=== PATIENT | male | born 1955 | race Caucasian/White ===

== ENCOUNTER 2022-10-19 17:56 | Inpatient (IN) | payer MEDICARE, BC ==
[~2022-10-19] VITALS: Ht 172.7 cm; Wt 100.7 kg
--- NOTE | 2022-10-19 18:03 | NUR ---
[email or web address], medical screening exam in progress
--- NOTE | 2022-10-19 18:14 | NUR ---
Patient is medically cleared by Dr Mckoy, pending accepting MHU nurse at this time.
[2022-10-19] MEDS ORDERED: QUET25TA PO (18:33)
[2022-10-19] MEDS ORDERED: RISP3TAB61 PO (18:33)
[2022-10-19] MEDS ORDERED: HYDR-3972 PO (18:33)
[2022-10-19] MEDS ORDERED: LAMO100T17 PO (18:33)
[2022-10-19] MEDS ORDERED: NAPR-1196 PO (18:33)
[2022-10-19] MEDS ORDERED: AMLO10TA59 PO (18:33)
[2022-10-19] MEDS ORDERED: NYST15OI2 TP (18:33)
[2022-10-19] MEDS ORDERED: GABA-532 PO (18:33)
[2022-10-19] MEDS ORDERED: CYAN500T9 PO (18:33)
[2022-10-19] MEDS ORDERED: DILT-4 PO (18:33)
[2022-10-19] MEDS ORDERED: APIX5TAB4 PO (18:33)
[2022-10-19] MEDS ORDERED: OXYC-117 PO (18:33)
[2022-10-19] MEDS ORDERED: LITH450T2 PO (18:33)
[2022-10-19] MEDS ORDERED: CHLO25CA22 PO (18:33)
[2022-10-19] MEDS ORDERED: FOLI1TAB27 PO (18:33)
--- NOTE | 2022-10-19 18:44 | NUR ---
Patient is eating hot dinner tray with good appetite, pending accepting MHU nurse at this time. Patient is calm and cooperative at this time.
--- NOTE | 2022-10-19 18:56 | NUR ---
Patient will be admitted to MHU room 137-A or 137-B , under care of Dr. Gee. Belongings List completed, pending accepting nurse at this time.
--- NOTE | 2022-10-19 19:30 | NUR ---
Pt is noted alert, responsive as report is received from the off going nurse that Pt was Transferred From [place] for admission to [facility] unit on hold 5150for Gravely Disabled and he is ETOH. He is medical Clear as he will be under DR. Desai and Dr. Williamson., going to Room 137 MHU. Pt care continue.
--- NOTE | 2022-10-19 19:34 | NUR ---
Patient is waiting for an accepting MHU nurse. Nursing hands off report given to registry nurse Rachael Motta
[2022-10-19] MEDS ORDERED: HALOPERIDOL LACTATE 5 MG/1 ML VIAL ONE (20:40)
--- NOTE | 2022-10-19 20:43 | NUR ---
Pt care continue as 10mg IM off Haldol given as he is passing and shouting out on Staffs. Pt care continue as awaits MHU RN to give report.
[2022-10-19] MEDS ORDERED: HALOPERIDOL LACTATE 5 MG/1 ML VIAL IM ONE (20:45)
--- NOTE | 2022-10-19 21:54 | NUR ---
Pt care continue as report is given to the MHU Nurse as Haldol 10mg IM noted effective.
[2022-10-19 22:15] VITALS: BP 138/83; TEMP 97.8; O2SAT 98
[2022-10-19] MEDS ORDERED: TEMAZEPAM 7.5 MG CAPSULE PO PRN (22:15)
[2022-10-19] MEDS ORDERED: LORAZEPAM 0.5 MG TABLET PO PRN (22:15)
[2022-10-19] MEDS ORDERED: MAGNESIUM HYDROXIDE 30 ML LIQUID UDC PO PRN (22:15)
[2022-10-19] MEDS ORDERED: MAG HYDROX/AL HYDROX/SIMETH 30 ML LIQUID UDC PO PRN (22:15)
--- NOTE | 2022-10-19 22:15 | NUR ---
ADMISSION NOTE; Patient is a 67 year old male, brought into the hospital by ambulance ,from [facility] . Patient is homeless and was placed on a 5150 for GD. Per the hold, pt was confuse, delusional and responding to interna stimuli and unable to care for him self. Upon face to face evaluation, the patient is guarded, labile and uncooperative. Pt is A/o X3 and has unsteady gait. Pt is able to voice his needs, skin is intact and no acute distress noted. This lyric writer oriented the patient to the environment, explained the plan of care at this time, provided a Patient Rights Handbook along with the Patient Advisement. Safety Strategies are in place. Continuing to monitor for safety, continue with treatment plan.
[2022-10-20] MEDS ORDERED: LORAZEPAM 1 MG TABLET PO PRN (05:45)
[2022-10-20 07:31] VITALS: BP 110/83; TEMP 98.1; O2SAT 98
[2022-10-20] MEDS: LITHIUM CARBONATE 150 MG CAPSULE PO SCH ×2 (12:14→16:22)
[2022-10-20] MEDS: risperiDONE 1 MG TABLET PO SCH ×2 (12:15→16:22)
[2022-10-20] MEDS: GABAPENTIN 100 MG CAPSULE PO SCH ×2 (13:00→17:00)
--- NOTE | 2022-10-20 14:18 | NUR ---
Received confuse, delusional and responding to interna stimuli , patient is guarded, labile and uncooperative. Pt is A/o X3 and has unsteady gait.isolative and withdraw no interaction with other peers.complant with medication ,will continue close monitoring.
[2022-10-20 16:13] VITALS: BP 137/65; TEMP 97.8; O2SAT 98
[2022-10-20] MEDS ORDERED: APIXABAN 5 MG PO SCH (17:00)
[2022-10-20] MEDS ORDERED: NAPROXEN 250 MG TABLET PO SCH (17:00)
[2022-10-20 19:44] VITALS: BP 122/74; TEMP 98.2; O2SAT 96
[2022-10-20] MEDS: APIXABAN 5 MG TABLET PO SCH (21:44)
--- NOTE | 2022-10-21 06:16 | NUR ---
Patient slept for approx 7hr through the night. he was noted calm and pleasant during the shift. will continue to monitor.
[2022-10-21 07:49] VITALS: BP 112/71; TEMP 98.1; O2SAT 98
[2022-10-21] MEDS: FOLIC ACID 1 MG TABLET PO SCH (08:21)
[2022-10-21] MEDS: risperiDONE 1 MG TABLET PO SCH ×3 (08:21→20:22)
[2022-10-21] MEDS: LITHIUM CARBONATE 150 MG CAPSULE PO SCH ×3 (08:21→16:25)
[2022-10-21] MEDS: CYANOCOBALAMIN 1,000 MCG TABLET PO SCH (08:21)
[2022-10-21] MEDS: AMLODIPINE 10 MG TABLET PO SCH (08:23)
[2022-10-21] MEDS: DILTIAZEM HCL CD 240 MG CAP.SR.24H PO SCH (08:23)
[2022-10-21] MEDS: GABAPENTIN 100 MG CAPSULE PO SCH ×3 (08:24→16:25)
[2022-10-21] MEDS: APIXABAN 5 MG TABLET PO SCH ×2 (08:37→20:23)
--- NOTE | 2022-10-21 14:04 | NUR ---
patient is more alert and oriented x2, delusional and responding to interna stimuli , patient is guarded. patient with unsteady gait.isolative and withdraw no interaction with other peers.complaint with medication ,will continue close monitoring.
--- NOTE | 2022-10-21 14:37 | NUR ---
DICK Initial Discharge Note: Pt's last residence was at [address] [address] living in his car. Pt stated he does not have his car anymore and he will need placement. Per pt, he does not speak to any family. Pt is currently homeless. Pt is accepting help with placement. DICK will continue to work with pt and MD to ensure a safe and proper discharge plan.
[2022-10-21 16:11] VITALS: BP 120/66; TEMP 98; O2SAT 98
[2022-10-21 19:50] VITALS: BP 125/82; TEMP 98.3; O2SAT 99
--- NOTE | 2022-10-21 21:13 | NUR ---
Received patient in the hallway. he is noted A/O x 2. he is able to ambulate with steady gait and able to do most of his ADLs with little assistance. He is noted calm and pleasant upon approached. Patient noted goal oriented. he denied SI/HI/AH/VH. he is able to verbalized his feelings. PO fluids and snacks were given. he is reassured for his safety. safety and fall precautions are in place. will continue to monitor.
--- NOTE | 2022-10-22 07:54 | NUR ---
GPS Nursing notes: Patient lying in bed in HOB, awake looking out the window, friendly on approach, clear speech, denies pain or discomforts, stated he slept well. No S/S of discomforts noted, denies SI/HI/VH/AH. Educated patient on morning reutine and breakfast schedule and medications.
[2022-10-22 07:59] VITALS: BP 100/70; TEMP 98; O2SAT 98
[2022-10-22] MEDS: CYANOCOBALAMIN 1,000 MCG TABLET PO SCH (08:12)
[2022-10-22] MEDS: GABAPENTIN 100 MG CAPSULE PO SCH ×3 (08:12→16:23)
[2022-10-22] MEDS: risperiDONE 1 MG TABLET PO SCH ×3 (08:13→20:23)
[2022-10-22] MEDS: LITHIUM CARBONATE 150 MG CAPSULE PO SCH ×3 (08:13→16:22)
[2022-10-22] MEDS: FOLIC ACID 1 MG TABLET PO SCH (08:13)
[2022-10-22] MEDS: APIXABAN 5 MG TABLET PO SCH ×2 (08:14→20:26)
[2022-10-22] MEDS: DILTIAZEM HCL CD 240 MG CAP.SR.24H PO SCH (08:18)
[2022-10-22] MEDS: AMLODIPINE 10 MG TABLET PO SCH (08:18)
--- NOTE | 2022-10-22 10:22 | NUR ---
GPS 14 Day hold Certification, Patient place on 687, certification given to patient and explained. Patient was informed that a certification review hearing will be held with in four days. Also , patient's right advocate will call to provide prosthetics assistant on answering his questions. The court has been notified of this certification via [employer] E-filling Process.
[2022-10-22 16:37] VITALS: BP 101/66; TEMP 97.6; O2SAT 100
--- NOTE | 2022-10-22 16:53 | NUR ---
GPS Nursing Notes: Patient is cooperative, Participates with self-care, medication compliant, Denies SI/HI/VH/AH, patient social with selective peers, up and about, watches TV with peers, attended group this morning. Fall and safety precaution observed. Will continue to monitor.
[2022-10-22 19:45] VITALS: BP 118/74; TEMP 98.1; O2SAT 99
--- NOTE | 2022-10-22 21:00 | NUR ---
Received patient in the hallway. he is noted A/O x 2 to 3. he is calm and pleasant upon approached. He is able to ambulate with steady gait, he is able to verbalized his feelings and he is goal oriented. he denied SI/HI/AH/VH. he is compliant with his plan of care. PO fluids and snacks were given. he is reassured for his safety. safety and fall precautions are in place. will continue to monitor.
[2022-10-23 07:48] VITALS: BP 105/70; TEMP 98; O2SAT 99
[2022-10-23] MEDS: GABAPENTIN 100 MG CAPSULE PO SCH ×3 (08:28→17:24)
[2022-10-23] MEDS: AMLODIPINE 10 MG TABLET PO SCH (08:29)
[2022-10-23] MEDS: DILTIAZEM HCL CD 240 MG CAP.SR.24H PO SCH (08:30)
[2022-10-23] MEDS: LITHIUM CARBONATE 150 MG CAPSULE PO SCH ×3 (08:31→17:24)
[2022-10-23] MEDS: CYANOCOBALAMIN 1,000 MCG TABLET PO SCH (08:31)
[2022-10-23] MEDS: risperiDONE 1 MG TABLET PO SCH ×3 (08:31→20:30)
[2022-10-23] MEDS: FOLIC ACID 1 MG TABLET PO SCH (08:31)
[2022-10-23] MEDS: APIXABAN 5 MG TABLET PO SCH ×2 (08:36→20:31)
[2022-10-23 15:02] VITALS: BP 90/55; TEMP 98; O2SAT 98
--- NOTE | 2022-10-23 15:34 | NUR ---
Firearms Report: Fence Post Driver completed and submitted a [employer] firearms report for 5150 grave disability certifications. A copy of report has been placed in patient chart.
--- NOTE | 2022-10-23 15:36 | NUR ---
Received patient awake in his room. A/O X 3 to person, place. Patient is cooperative with nursing care, compliant with medications, interactive with staff, talkative, depressed and isolative at times. Active listening provided. Fall and safety precautions implemented.
[2022-10-23 20:08] VITALS: BP 135/95; TEMP 98.2; O2SAT 98
--- NOTE | 2022-10-24 04:15 | NUR ---
Received patient in his room, awake, calm and collected, A&0x3. Denies SI/AH/VH. Patient gets along well with selective peers. Response appropriately when asked. He is med compliant, cooperative and directable. Patient sleeps well this shift. No distress noted. Safety measures kept in placed at all times.
[2022-10-24 07:55] VITALS: BP 122/68; TEMP 98.4; O2SAT 99
[2022-10-24] MEDS: APIXABAN 5 MG TABLET PO SCH ×2 (08:32→20:34)
[2022-10-24] MEDS: GABAPENTIN 100 MG CAPSULE PO SCH ×3 (08:33→17:36)
[2022-10-24] MEDS: LITHIUM CARBONATE 150 MG CAPSULE PO SCH (08:33)
[2022-10-24] MEDS: CYANOCOBALAMIN 1,000 MCG TABLET PO SCH (08:33)
[2022-10-24] MEDS: DILTIAZEM HCL CD 240 MG CAP.SR.24H PO SCH (08:33)
[2022-10-24] MEDS: AMLODIPINE 10 MG TABLET PO SCH (08:43)
[2022-10-24] MEDS: risperiDONE 1 MG TABLET PO SCH ×3 (08:43→20:35)
[2022-10-24] MEDS: FOLIC ACID 1 MG TABLET PO SCH (08:43)
--- NOTE | 2022-10-24 09:52 | NUR ---
DICK Discharge Update: DICK spoke with Twisting Frame Operator, Vishal [phone] from [facility] regarding pt's continuation care who stated they would like the pt to be referred to [facility]. Pt is aware and agreeable. Per pt he is not in contact with his family. Pt is alert and oriented x4.
[2022-10-24] MEDS ORDERED: ZOLPIDEM 5 MG TABLET PO PRN (10:15)
[2022-10-24 15:03] VITALS: BP 110/82; TEMP 98; O2SAT 99
--- NOTE | 2022-10-24 15:36 | NUR ---
Patient is A/O X 3 to person, place. Patient is interactive with staff and peers, participates in group activities, cooperative with nursing care, compliant with medications, following directions, depressed and isolative at times. Active listening provided. Fall and safety precautions implemented.
[2022-10-24] MEDS: LITHIUM CARBONATE 300 MG CAPSULE PO SCH (17:37)
[2022-10-24 20:00] VITALS: BP 115/64; TEMP 98.1; O2SAT 100
[2022-10-25 07:30] VITALS: BP 114/78; TEMP 98.2; O2SAT 99
[2022-10-25] MEDS: FOLIC ACID 1 MG TABLET PO SCH (08:19)
[2022-10-25] MEDS: GABAPENTIN 100 MG CAPSULE PO SCH ×3 (08:19→16:50)
[2022-10-25] MEDS: LITHIUM CARBONATE 300 MG CAPSULE PO SCH ×2 (08:19→16:50)
[2022-10-25] MEDS: CYANOCOBALAMIN 1,000 MCG TABLET PO SCH (08:19)
[2022-10-25] MEDS: risperiDONE 1 MG TABLET PO SCH ×4 (08:19→20:27)
[2022-10-25] MEDS: APIXABAN 5 MG TABLET PO SCH ×2 (08:20→20:27)
[2022-10-25] MEDS: AMLODIPINE 10 MG TABLET PO SCH (08:20)
[2022-10-25] MEDS: DILTIAZEM HCL CD 240 MG CAP.SR.24H PO SCH (08:21)
--- NOTE | 2022-10-25 11:19 | NUR ---
Received patient awake in his room. Patient is A/O X 3 to person, place. Patient is compliant with medications, sociable, talkative, interactive with staff and peers. Patient has outbursts when his needs are not met immediately and poor impulse control. Active listening provided. Fall and safety precautions implemented.
--- NOTE | 2022-10-25 12:00 | NUR ---
Patient had court hearing today, and surgical instrument repair specialist Juan C Vallejo gave 14 Day hold probable cause for GD.
[2022-10-25 15:09] VITALS: BP 103/71; TEMP 98; O2SAT 99
[2022-10-25 19:52] VITALS: BP 112/71; TEMP 97.7; O2SAT 100
--- NOTE | 2022-10-25 20:56 | NUR ---
Patient refused to take the HS dose of Risperdal. Per patient " I have not taken that medication for 3 days. The doctor knows about it , cause I told him and he said OK. " Education and encouragement were given but the patient was adamant stating, " That medication makes me feel crazy. I'M better off without it ". No s/s of any acute issues noted. Safety Stratiges are in place and ongoing . The patient is calm tonight so far. No labile moods or any responding to internal stimuli observed at this time.
--- NOTE | 2022-10-26 01:55 | NUR ---
The patient has not slept yet and has been talking in a loud voice, using profanities. This web content writer observed the patient responding to internal stimuli. The patient refused to take any PRN medications. The patient has little insight to how disruptive his behavior is to the unit and to his life. When asked to tone it down, the patient closed the door instead. Continuing to monitor the patient for behavior escalation and compliance. Education regarding the risks vs the benefits of taking medications were again, talked about.
--- NOTE | 2022-10-26 07:10 | NUR ---
GPS Nursing notes: Patient is up and wants to shower this morning, denies pain or discomforts, stated he slept well, denies SI/HI/VH/AH, but report by night nurse patient is talking to himself at night, Patient also stated he does not want to take Risperdal, will follow up with Psychiatrist, Per patient "It makes my head wrong". Assisted patient with showered at this time. Patient is cooperative with self-care. fall and safety precautions implemented, emotional support provided. Will continue to monitor.
[2022-10-26 07:50] VITALS: BP 124/97; TEMP 97.5; O2SAT 100
[2022-10-26] MEDS: GABAPENTIN 100 MG CAPSULE PO SCH ×3 (08:41→16:34)
[2022-10-26] MEDS: DILTIAZEM HCL CD 240 MG CAP.SR.24H PO SCH (08:42)
[2022-10-26] MEDS: APIXABAN 5 MG TABLET PO SCH ×2 (08:43→20:35)
[2022-10-26] MEDS: CYANOCOBALAMIN 1,000 MCG TABLET PO SCH (08:43)
[2022-10-26] MEDS: AMLODIPINE 10 MG TABLET PO SCH (08:43)
[2022-10-26] MEDS: risperiDONE 1 MG TABLET PO SCH ×3 (08:43→20:32)
[2022-10-26] MEDS: LITHIUM CARBONATE 300 MG CAPSULE PO SCH ×2 (08:43→16:33)
[2022-10-26] MEDS: FOLIC ACID 1 MG TABLET PO SCH (08:43)
--- NOTE | 2022-10-26 10:11 | NUR ---
GPS Nursing Notes: Dr Tillman notified of patient not taking Risperdal, per Doctor continue to offer medications.
[2022-10-26] MEDS: ACETAMINOPHEN 325 MG TABLET PO PRN (13:30)
[2022-10-26 15:51] VITALS: BP 107/66; TEMP 97.6; O2SAT 100
--- NOTE | 2022-10-26 17:23 | NUR ---
GPS Nursing notes: Patient requested to take 17:00 Risperdal 1mg, per patient ,"Ok I will try to take, let me see what it does to me, I will take it". Given Risperdal 1mg. Will continue to monitor.
[2022-10-26 19:37] VITALS: BP 113/44; TEMP 98.2; O2SAT 100
[2022-10-26] MEDS: HYDROCODONE/APAP 5-325MG TABLET PO PRN (21:26)
--- NOTE | 2022-10-27 01:28 | NUR ---
Patient agreed to take his PM dose of Risperdal , without any pushback. At the same time , the patient requested a pain medication for his " Back". This instructional writer noticed him responding to internal stimuli again tonight but not as loud or aggressive as the previous night. Safety Stratiges are in place. Continuing to monitor the patient for behavior escalation d/t patient having labile moods and is easily irritated.
[2022-10-27] MEDS: HYDROCODONE/APAP 5-325MG TABLET PO PRN ×3 (05:55→19:51)
[2022-10-27 07:43] VITALS: BP 122/50; TEMP 97.5; O2SAT 99
[2022-10-27] MEDS: FOLIC ACID 1 MG TABLET PO SCH (08:45)
[2022-10-27] MEDS: CYANOCOBALAMIN 1,000 MCG TABLET PO SCH (08:45)
[2022-10-27] MEDS: AMLODIPINE 10 MG TABLET PO SCH (08:46)
[2022-10-27] MEDS: risperiDONE 1 MG TABLET PO SCH ×3 (08:46→19:52)
[2022-10-27] MEDS: DILTIAZEM HCL CD 240 MG CAP.SR.24H PO SCH (08:46)
[2022-10-27] MEDS: LITHIUM CARBONATE 300 MG CAPSULE PO SCH ×2 (08:46→16:47)
[2022-10-27] MEDS: APIXABAN 5 MG TABLET PO SCH ×2 (08:47→19:53)
[2022-10-27] MEDS: GABAPENTIN 100 MG CAPSULE PO SCH ×3 (08:47→16:48)
[2022-10-27] MEDS: ACETAMINOPHEN 325 MG TABLET PO PRN (10:20)
--- NOTE | 2022-10-27 14:32 | NUR ---
Received patient is alert and oriented and responding to interna stimuli , patient is guarded, flat affect more cooperative. Pt is A/o X3 and has unsteady gait.isolative and withdraw with min. interaction with other peers.complaint with medication ,encouraged to attend in group activity will continue close monitoring.
[2022-10-27 15:53] VITALS: BP 101/57; TEMP 98; O2SAT 99
[2022-10-27 21:44] VITALS: BP 120/78; TEMP 97.5; O2SAT 99
--- NOTE | 2022-10-28 03:16 | NUR ---
Received patient in the hallway, angry and paranoid. Complaining about the day shift nurses not "Helping me and they have bad attitudes. " This patient has been labile and inappropriate with this property underwriter. Laughing for no reason, attention seeking with peers and staff, unrelenting entitled attitude , easily angered ,and has shown poor insight to his behaviors as they relate to social norms. The patient has been heard, by this property underwriter, having aggressive conversations with the voice in his head. Multiple times at the start of the night, the patient would be pacing the llanes and rooting around for food in trash sacks. Hoarding leftovers and gathering any little items that aren't glued down. After encouragement and education, the patient agreed to try a PRN sleeping pill , which has been effective. Safety Stratiges are in place. Continuing to monitor the patient for escalating moods and unpredictable behaviors.
--- NOTE | 2022-10-28 07:30 | NUR ---
patient refused for vital sign taken with angry voice, hold all blood pressure medication .
[2022-10-28] MEDS: HYDROCODONE/APAP 5-325MG TABLET PO PRN ×2 (08:39→16:08)
[2022-10-28] MEDS: GABAPENTIN 100 MG CAPSULE PO SCH ×3 (08:40→16:08)
[2022-10-28] MEDS: APIXABAN 5 MG TABLET PO SCH ×2 (08:41→21:12)
[2022-10-28] MEDS: DILTIAZEM HCL CD 240 MG CAP.SR.24H PO SCH (08:41)
[2022-10-28] MEDS: FOLIC ACID 1 MG TABLET PO SCH (08:41)
[2022-10-28] MEDS: risperiDONE 1 MG TABLET PO SCH ×2 (08:41→16:08)
[2022-10-28] MEDS: LITHIUM CARBONATE 300 MG CAPSULE PO SCH ×2 (08:41→16:08)
[2022-10-28] MEDS: CYANOCOBALAMIN 1,000 MCG TABLET PO SCH (08:42)
[2022-10-28] MEDS: AMLODIPINE 10 MG TABLET PO SCH (08:42)
--- NOTE | 2022-10-28 09:39 | NUR ---
patient came to nursing station asked nurse to take out his credit card now so he can write down the credit care number, nurse explain to him , we can not constant remove patient's valuable belonging from safe,patient still with unrelenting entitled attitude yelling at nurse saying you just don't like me since i am here.( he want to pay for his roommate"s some facility cost ) after explained to patient we cat not do that he was apologize to nurse.
[2022-10-28] MEDS ORDERED: LITHIUM CARBONATE 150 MG CAPSULE PO SCH (13:00)
[2022-10-28] MEDS: ACETAMINOPHEN 325 MG TABLET PO PRN (13:08)
[2022-10-28 17:06] VITALS: BP 112/73; TEMP 97.1; O2SAT 96
[2022-10-28 20:44] VITALS: BP 123/82; TEMP 98.4; O2SAT 100
[2022-10-28] MEDS ORDERED: risperiDONE 0.5 MG TABLET PO SCH (21:00)
--- NOTE | 2022-10-28 21:00 | NUR ---
Received patient in the day room. He is noted A/O x 3 calm and pleasant upon approached. He is able to verbalized feelings. Patient noted with bright affect, he smiles and appears happy. He is compliant with medication regiment, diet and plan of care. He is reassured for his safety, safety and fall precautions are in place. Pt was given PO fluids and snacks. will continue to monitor.
[2022-10-29] MEDS: HYDROCODONE/APAP 5-325MG TABLET PO PRN ×3 (04:42→20:11)
[2022-10-29 07:34] LABS: HEMATOCRIT 31.2 % (36.7-47.1); MEAN CORPUSCULAR HEMOGLOBIN 23.5 uug (23.8-33.4); MEAN CORPUSCULAR VOLUME 74.6 fL (73.0-96.2); PLATELET COUNT (AUTO) 274 K/uL (152-348)
[2022-10-29 07:35] VITALS: BP 102/65; TEMP 98.5; O2SAT 98
[2022-10-29 07:50] LABS: BILIRUBIN,TOTAL 0.3 mg/dL (0.2-1.0); CREATININE 0.8 mg/dL (0.6-1.3); POTASSIUM 4.6 mmol/L (3.5-5.1); TOTAL PROTEIN, SERUM 6.3 g/dL (6.4-8.2)
[2022-10-29] MEDS: FOLIC ACID 1 MG TABLET PO SCH (08:21)
[2022-10-29] MEDS: LITHIUM CARBONATE 300 MG CAPSULE PO SCH ×3 (08:21→16:40)
[2022-10-29] MEDS: GABAPENTIN 100 MG CAPSULE PO SCH ×3 (08:21→16:41)
[2022-10-29] MEDS: APIXABAN 5 MG TABLET PO SCH ×2 (08:22→20:13)
[2022-10-29] MEDS: risperiDONE 1 MG TABLET PO SCH ×3 (08:22→16:42)
[2022-10-29] MEDS: CYANOCOBALAMIN 1,000 MCG TABLET PO SCH (08:22)
[2022-10-29] MEDS: AMLODIPINE 10 MG TABLET PO SCH (09:00)
--- NOTE | 2022-10-29 09:00 | NUR ---
Alert, oriented x 3, pleasantly interacts, calm, compliant with taking of medications. Reports of back pain and asking for [place], redirected to due time.
[2022-10-29 11:22] LABS: EOSINOPHILS % (MANUAL) 1 % (0-8); LYMPHOCYTES % (MANUAL) 15 % (20-40); MONOCYTES % (MANUAL) 8 % (2-10); NEUTROPHILS % (MANUAL) 76 % (42-75)
[2022-10-29] MEDS: DILTIAZEM HCL CD 240 MG CAP.SR.24H PO SCH (12:17)
--- NOTE | 2022-10-29 13:00 | NUR ---
Participated in the activity. Eating well. Ask for a change of clothes.
[2022-10-29 15:39] VITALS: BP 101/67; TEMP 98.4; O2SAT 99
--- NOTE | 2022-10-29 17:06 | NUR ---
Awake after sleeping mostly in the afternoon. Went out to the activity room to watch TV. Responds to interaction.
--- NOTE | 2022-10-29 18:00 | NUR ---
Called 2x today to follow up referral to DPM, no response, will endorse
[2022-10-29 19:47] VITALS: BP 106/64; TEMP 98.2; O2SAT 98
[2022-10-29] MEDS ORDERED: risperiDONE 2 MG TABLET PO SCH (21:00)
--- NOTE | 2022-10-30 05:17 | NUR ---
Received patient in his room, awake, calm and collected, A&0x3. Denies SI/AH/VH. He is med compliant, cooperative and directable. Noted to be responding to internal stimuli, but responds appropriately when engage in conversation. Slept well this shift. Safety strategies in placed.
[2022-10-30] MEDS: HYDROCODONE/APAP 5-325MG TABLET PO PRN ×3 (05:57→22:46)
[2022-10-30 08:06] VITALS: BP 140/74; TEMP 98; O2SAT 99
[2022-10-30] MEDS: GABAPENTIN 100 MG CAPSULE PO SCH ×3 (08:15→17:35)
[2022-10-30] MEDS: LITHIUM CARBONATE 300 MG CAPSULE PO SCH ×3 (08:15→17:36)
[2022-10-30] MEDS: DILTIAZEM HCL CD 240 MG CAP.SR.24H PO SCH (08:16)
[2022-10-30] MEDS: FOLIC ACID 1 MG TABLET PO SCH (08:16)
[2022-10-30] MEDS: CYANOCOBALAMIN 1,000 MCG TABLET PO SCH (08:16)
[2022-10-30] MEDS: risperiDONE 1 MG TABLET PO SCH ×2 (08:16→17:35)
[2022-10-30] MEDS: AMLODIPINE 10 MG TABLET PO SCH (08:16)
[2022-10-30] MEDS: APIXABAN 5 MG TABLET PO SCH ×2 (08:18→20:52)
[2022-10-30 15:42] VITALS: BP 113/64; TEMP 98; O2SAT 99
--- NOTE | 2022-10-30 15:43 | NUR ---
Patient is cooperative with nursing care, compliant with medications, demanding, talkative, fixated on snacks and ice. Patient is A/O X 3 to person, place. [place] 5-325 mg is given at 14:07 for lower back pain, effective. Active listening provided. Fall and safety precautions implemented.
[2022-10-30 20:04] VITALS: BP 118/77; TEMP 98.1; O2SAT 99
[2022-10-30] MEDS ORDERED: risperiDONE 1 MG TABLET PO SCH (21:00)
--- NOTE | 2022-10-30 21:30 | NUR ---
received patient in the hallway. he is noted A/O x 3. He is calm and pleasant upon approached. Pt is aware of his incoming discharged to a SNF. He denied SI/HI/VA/AH. he is able to CFS. He is compliant with his medication regiment diet and plan of care. V/S are stable. PO fluids and snacks were given. he is reassured for his safety. safety and fall precautions are in place. will continue to monitor.
--- NOTE | 2022-10-31 06:31 | NUR ---
PATIENT SLEPT FOR APPROX 6.30 HRS THROUGH THE NIGHT. HE IS COMPLIANT WITH MEDICATION REGIMENT DIET AND VEGA OF CARE. PT TOLERATE MEDICATION WELL. WILL ENDORSE ACCORDINGLY.
[2022-10-31] MEDS: HYDROCODONE/APAP 5-325MG TABLET PO PRN (07:45)
[2022-10-31 07:59] VITALS: BP 106/69; TEMP 98; O2SAT 100
[2022-10-31 09:00] VITALS: BP 106/69
[2022-10-31] MEDS: DILTIAZEM HCL CD 240 MG CAP.SR.24H PO SCH (09:00)
[2022-10-31] MEDS: AMLODIPINE 10 MG TABLET PO SCH (09:00)
[2022-10-31] MEDS: risperiDONE 1 MG TABLET PO SCH (09:18)
[2022-10-31] MEDS: GABAPENTIN 100 MG CAPSULE PO SCH ×2 (09:18→12:24)
[2022-10-31] MEDS: LITHIUM CARBONATE 300 MG CAPSULE PO SCH ×2 (09:19→12:24)
[2022-10-31] MEDS: CYANOCOBALAMIN 1,000 MCG TABLET PO SCH (09:21)
[2022-10-31] MEDS: APIXABAN 5 MG TABLET PO SCH (09:21)
[2022-10-31] MEDS: FOLIC ACID 1 MG TABLET PO SCH (09:21)
--- NOTE | 2022-10-31 13:47 | NUR ---
DICK Discharge Note: Pt will be discharged to [facility] [address] [place] [address] ([phone]) via Ambulance transportation at 2PM. DICK spoke with admin coordinator Raya ([phone]) at the facility who states they are ready to accept the patient today. Pt is aware and agreeable with discharge plan. Pt refused any communication with his family regarding his treatment and discharge plan. Pt is alert and oriented x4, is unable to plan for self-care at this time. However, pt is willing to accept care at [facility]. Pt denies any suicidal or homicidal ideation. Pt will follow-up at the facility with Psychiatrist, Dr. Green and Dance Instructor, Dr. Jarvis. Pt presents with calm mood and congruent affect. PHARMACY: [facility] ([phone]) [address] [address]. Patient was provided with a brief substance abuse intervention and referred to the following substance abuse programs: [facility] ([phone]); [facility] [address] [place] [address] ([phone]); [address] [address] ([phone]); [facility] ([phone]); [facility] ([phone]); [facility] ([phone]); [facility] ([phone]). DICK placed a copy of the pts substance use intervention that pt completed and signed.
--- NOTE | 2022-10-31 15:03 | NUR ---
Received orders to discharge this patient to [facility] [address] [place] [id number] ([phone]) via Ambulance transportation at 2PM. Patient is agreeable with discharge plans, and signed all discharge documentation. Patient denies SI/HI AH/VH, SOB, pain or any discomfort. All valuables, belongings were returned to patient. Emotional support provided. Fall and safety precautions implemented.
== END 2022-10-31 14:45 | DRG 885 ==
LOC: ER 18:09 → GPS 19:09
PROVIDERS: ADMIT Psychiatry & Neurology Psychosomatic Medicine; ATTEND Nurse Practitioner Acute Care
DX: F25.0 Schizoaffective disorder, bipolar type (principal); F41.9 Anxiety disorder, unspecified; I48.0 Paroxysmal atrial fibrillation; Z79.01 Long term (current) use of anticoagulants; E66.9 Obesity, unspecified; E78.5 Hyperlipidemia, unspecified; I10 Essential (primary) hypertension; M19.90 Unspecified osteoarthritis, unspecified site; Z72.0 Tobacco use; F15.11 Other stimulant abuse, in remission; Z96.649 Presence of unspecified artificial hip joint; Z73.6 Limitation of activities due to disability; Z68.33 Body mass index [BMI] 33.0-33.9, adult; F14.11 Cocaine abuse, in remission; F10.10 Alcohol abuse, uncomplicated; Z59.00 Homelessness unspecified
CPT/HCPCS: 36415; 70030-TC; 85025; J1630